=== PATIENT | female | born 1960 ===

== ENCOUNTER 2021-06-12 11:16 | Emergency (ER) | payer OTHER ==
[2021-06-12] MEDS ORDERED: HYDROcodone/ACETAMINOPHEN 5-325 MG TAB PO STA (21:18)
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
[2021-06-12 22:57] VITALS: BP 157/98
== END 2021-06-12 22:54 | disposition home or self-care (01) ==
LOC: ED 11:16
DX: M79.10 Myalgia, unspecified site (principal); V89.2XXA Person injured in unspecified motor-vehicle accident, traffic, initial encounter; Y93.89 Activity, other specified; Y92.89 Other specified places as the place of occurrence of the external cause; Y99.8 Other external cause status
CPT/HCPCS: 71046; 99283